=== PATIENT | female | born 2000 | race Caucasian/White ===

== ENCOUNTER 2019-02-25 10:36 | Emergency (ER) | payer OTHER ==
[2019-02-25 10:44] VITALS: TEMP 98; BMI 23.8
--- NOTE | 2019-02-25 10:53 | PDOC ---
Attending Attestation - Resident Resident Name: Peter Serrano - HPI HPI: 02/25/19 12:44 pt presents to the ED complaining of profuse nausea and vomiting after heavy ETOH intake last night. Denies other complaints. 02/25/19 12:45 - Physicial Exam PE: 02/25/19 12:48 Agree with resident exam. patient is sleeping but easily arousable. CV: Mildly tachycardic, regular rate and rhythm, no murmurs. Pulm: CTA b/l. Abdomen: soft, non tender, non distended, without guarding or rebound. - Medical Decision Making 02/25/19 12:49 Pt presents to the ED complaining of nausea and profuse vomiting after excessive drinking. Differential includes dehydration, electrolyte imbalance, less likely alcoholic ketoacidosis. Will give nausea control and, check labs, give IV hydration and reasses.
[2019-02-25] MEDS ORDERED: ONDANSETRON 4 MG/2 ML VIAL ONE ×2 (11:00→12:07)
[2019-02-25] MEDS ORDERED: FAMOTIDINE 20 MG/50 ML IVPB 20 MG/50 ML MG IVPB ONE ×2 (11:11→11:12)
[2019-02-25] MEDS ORDERED: SODIUM CHLORIDE 0.9% 500 ML INFUS.BAG IV ONE (11:11)
--- NOTE | 2019-02-25 11:19 | PDOC ---
History of Present Illness - General Chief Complaint: Nausea/Vomiting Stated Complaint: DIZZNESS/ WEAK/ THROWING UP Time Seen by Provider: 02/25/19 10:53 History Source: Patient Exam Limitations: No Limitations - History of Present Illness Initial Comments: 02/25/19 15:51 HPI: 18F otherwise healthy c/o n/v/weakness after drinking 2 cups of larry last PM. NBNB clear vomit x6. Currently endorsing nausea and mild abdominal discomfort. Pt states she never felt like that before after drinking and was worried sx might be related to her tampon being left in for ~ 8h. Denies f/c, cp /sob, dysuria, abnormal vaginal discharge). Denies co-ingestion. LMP now. Endorses occasional etoh. No prior surgeries. Past History - Past Medical History Allergies/Adverse Reactions: Allergies Allergy/AdvReac Type Severity Reaction Status Date / Time No Known Allergies Allergy Verified 02/25/19 10:44 Home Medications: Ambulatory Orders NK [No Known Home Medication] 02/25/19 COPD: No - Psycho Social/Smoking Cessation Hx Smoking History: Never smoked Review of Systems - Review of Systems Able to Perform ROS?: Yes Comments:: 02/25/19 15:51 ROS: CONSTITUTIONAL: Denies F / C RESP: Denies SOB CARD: Denies chest pain GI: Endorses N/V, abdominal discomfort. Denies Diarrhea : Endorses current menses. Denies dysuria, abnormal vaginal discharge. SKIN: Denies rashes Is the patient limited Sudanese proficient: No *Physical Exam - Vital Signs Last Vital Signs Temp Pulse Resp BP Pulse Ox 98 F 127 H 18 128/69 99 02/25/19 10:41 02/25/19 10:41 02/25/19 10:41 02/25/19 10:41 02/25/19 10:41 - Physical Exam Comments: 02/25/19 15:51 PE: VS reviewed, tachycardic, AF, NBP GEN: Moderately distressed, AAOx3 HEENT: NC/AT. No facial asymmetry. Moist mucous membranes. Normal voice. Supple neck w/ FROM. CV: S1/S2, RRR, no m/r/g LUNG: CTAB, no wheezes, crackles, rales, rhonchi. GI: soft, ndnt, +BS, no guarding, no rebound. No masses. SKIN: warm, dry, normal turgor PSYCH: normal mood and affect NEURO: Moving all extremities well ED Treatment Course - LABORATORY CBC & Chemistry Diagram: 02/25/19 11:20 02/25/19 11:20 Medical Decision Making - Medical Decision Making 02/25/19 11:13 MDM: 18F w/ n/v 2/2 etoh. - cbc, cmp, - NS, zofran, pepcid - PO challenge - likely dc home 02/25/19 12:12 Repeat VS D5 1/2NS Zofran HR 90s 02/25/19 13:30 Patient reassessed and feeling much better; currently tolerating PO WBC likely reactive to vomiting DC home Discharge - Discharge Information Problems reviewed: Yes Clinical Impression/Diagnosis: Vomiting Qualifiers: Vomiting type: unspecified Vomiting Intractability: non-intractable Nausea presence: with nausea Qualified Code(s): R11.2 - Nausea with vomiting, unspecified Condition: Improved Disposition: HOME - Admission No - Follow up/Referral - Patient Discharge Instructions Patient Printed Discharge Instructions: DI for Vomiting -- Adult Additional Instructions: You were seen and treated in the Emergency Department Please drink plenty of fluids IMMEDIATELY return to the ED if you experience any of the following: - continued nausea and vomiting - inability to keep food or drink down - vomiting blood or bloody stool - high fevers, severe pain - ANYTHING that concerns you - Post Discharge Activity
[2019-02-25] MEDS ORDERED: ONDANSETRON 4 MG/2 ML VIAL IVPUSH ONE ×2 (11:24→12:10)
[2019-02-25 11:27] LABS: BASO % 0.4 % (0-2.0); EOS % 0.1 % (0-4.5); HEMATOCRIT 39.1 % (32.4-45.2); HEMOGLOBIN 12.9 GM/dL (10.7-15.3); LYMPH % 8.1 % (8-40); MCH 30.2 pg (25.7-33.7); MEAN CELL VOLUME 91.4 fl (80-96); MEAN PLT VOLUME 8.1 fl (7.5-11.1); MONO % 3.3 % (3.8-10.2); NEUT % 88.1 % (42.8-82.8); PLATELET COUNT 307 K/MM3 (134-434); RBC 4.28 M/mm3 (3.60-5.2); RDW 15.2 % (11.6-15.6)
[2019-02-25 11:54] LABS: ALBUMIN 4.4 g/dl (3.4-5.0); BILIRUBIN,TOTAL 0.3 mg/dL (0.2-1); BLOOD UREA NITROGEN 18.2 mg/dL (7-18); CALCIUM 9.2 mg/dL (8.5-10.1); CREATININE 0.7 mg/dL (0.55-1.3); TOT PROT 7.5 g/dl (6.4-8.2)
[2019-02-25] MEDS ORDERED: DEXTROSE 5%-0.45% SALINE 1,000 ML IV SCH (12:15)
[2019-02-25 13:57] VITALS: BP 107/57; PULSE 89
== END 2019-02-25 13:57 | disposition home or self-care (01) ==
LOC: JER 10:36
PROC: 3E0337Z Introduction of Electrolytic and Water Balance Substance into Peripheral Vein, Percutaneous Approach (ICD-10-PCS; principal; 2019-02-25)
PROC: 3E033GC Introduction of Other Therapeutic Substance into Peripheral Vein, Percutaneous Approach (ICD-10-PCS; 2019-02-25)
PROC: 3E033GC Introduction of Other Therapeutic Substance into Peripheral Vein, Percutaneous Approach (ICD-10-PCS; 2019-02-25)
DX: R11.2 Nausea with vomiting, unspecified (principal)
CPT/HCPCS: 36415; 80053; 84703; 85025; 96361; 96365; 96375; 96376; 99284-25